=== PATIENT | female | born 1975 | race African-American/Black ===

== ENCOUNTER 2016-05-01 15:18 | Emergency (ER) | payer OTHER | END 2016-05-01 16:17 | disposition left against medical advice (07) | LOC: EMS 15:19 | DX: R11.10 Vomiting, unspecified (principal); Z53.21 Procedure and treatment not carried out due to patient leaving prior to being seen by health care provider ==

== ENCOUNTER 2016-09-20 12:55 | Emergency (ER) | payer MEDICAID, OTHER ==
[~2016-09-20] VITALS: Ht 157.5 cm; Wt 115.5 kg
[2016-09-20 16:41] VITALS: BP 139/77
== END 2016-09-20 16:54 | disposition home or self-care (01) ==
LOC: EMS 12:56
DX: O26.892 Other specified pregnancy related conditions, second trimester (principal); L03.115 Cellulitis of right lower limb; J45.909 Unspecified asthma, uncomplicated; Z3A.24 24 weeks gestation of pregnancy
CPT/HCPCS: 99283

== ENCOUNTER 2022-12-31 17:34 | Emergency (ER) | payer MEDICAID ==
[~2022-12-31] VITALS: Ht 157.5 cm; Wt 103.0 kg
[2022-12-31] MEDS ORDERED: SEMA0.258 SQ (17:43)
[2022-12-31] MEDS ORDERED: SERT-162 PO (17:43)
[2022-12-31] MEDS ORDERED: CABO6SUS IM (17:43)
[2022-12-31] MEDS ORDERED: ALBU18HF12 IH (17:43)
[2022-12-31 18:13] LABS: BASOPHILS % (AUTO) 0.7 % (0.0-2.0); EOSINOPHILS % (AUTO) 1.5 % (1.0-6.0); HEMATOCRIT 34.2 % (36-46); HEMOGLOBIN 11.5 g/dL (12.0-16.0); LYMPHOCYTES # (AUTO) 1.4 K/uL (1.0-4.8); MEAN CORPUSCULAR HEMOGLOBIN 30.7 pg (26.0-34.0); MEAN CORPUSCULAR HGB CONC 33.5 G/dL (31.0-37.0); MEAN CORPUSCULAR VOLUME 92 fL (80-100); MONOCYTES # (AUTO) 0.6 K/uL (0.1-1.0); MONOCYTES % (AUTO) 7.8 % (2.0-9.0); PLATELET COUNT (AUTO) 275 K/uL (150-450); RED BLOOD CELL COUNT(AUTO) 3.73 MIL/uL (4.00-5.20); RED CELL DISTRIBUTION WIDTH 14.5 % (11.5-14.5); WHITE BLOOD COUNT (AUTO) 7.1 K/uL (4.5-11.0)
[2022-12-31 18:26] LABS: D-DIMER 1.81 mg/L FEU (0.00-0.50); PROTHROMBIN TIME 10.3 SEC (9.4-11.6)
[2022-12-31 18:38] LABS: ANION GAP 8 mmol/L (8-16); B-TYPE NATRIURETIC PEPTIDE 15 pg/mL (0-100); CALCIUM, TOTAL 8.6 mg/dL (8.8-10.5); CARBON DIOXIDE 25 mmol/L (22-29); CHLORIDE 101 mmol/L (98-107); CREATININE 2.33 mg/dL (0.60-1.30); GLOMERULAR FILTR. RATE CALC 27 mL/min (>60); GLUCOSE,RANDOM 102 mg/dL (70-110); POTASSIUM 4.6 mmol/L (3.5-5.1); SODIUM SERUM 134 mmol/L (136-145); UREA NITROGEN, BLOOD 35 mg/dL (7-18)
[2022-12-31 18:44] LABS: ALANINE AMINOTRANSFERASE 40 U/L (12-78); ALBUMIN 2.8 g/dL (3.4-5.0); ALKALINE PHOSPHATASE 116 U/L (46-116); ASPARTATE AMINOTRANSFERASE 37 U/L (15-37); BILIRUBIN,TOTAL 0.5 mg/dL (0.1-1.0); CREATINE KINASE, TOTAL ONLY 63 U/L (26-192); TOTAL PROTEIN, SERUM 8.5 g/dL (6.4-8.2)
[2022-12-31 19:00] LABS: TROPONIN I-HIGH SENSITIVITY 4 ng/L (<51)
[2022-12-31 19:21] LABS: HCG,QUANTITATIVE < 1 mIU/mL (0-6)
[2022-12-31 20:35] LABS: TROPONIN I-HIGH SENSITIVITY 6 ng/L (<51)
[2022-12-31] MEDS ORDERED: ACETAMINOPHEN 500 MG TABLET PO ONE (21:00)
[2022-12-31] MEDS ORDERED: FAMOTIDINE 20 MG TABLET PO ONE (21:00)
[2022-12-31] MEDS ORDERED: MAG HYDROX/AL HYDROX/SIMETH 30 ML SUSP UDCUP PO ONE (21:00)
[2022-12-31] MEDS ORDERED: PENTETATE DTPA TC99M/MCL ISOTOPE 1 EA INJ INJ ONE (21:20)
[2022-12-31] MEDS ORDERED: MAA ALBUMIN AGGREGATED TC99M/UD<10MCL ISOTOPE 1 EA INJ INJ ONE (21:35)
[2023-01-01 00:12] VITALS: BP 134/74; PULSE 71; RESP 16; TEMP 98.3
== END 2023-01-01 00:22 | disposition home or self-care (01) ==
LOC: EMS 17:34
DX: R07.89 Other chest pain (principal); J45.909 Unspecified asthma, uncomplicated; Z98.890 Other specified postprocedural states; Z88.0 Allergy status to penicillin
CPT/HCPCS: 99285; 78582; 71045; 80053; 82550; 83880; 84484; 84702; 85025; 85379; 85610; 85730; 36415; 93005; A9540; A9539

== ENCOUNTER 2023-01-31 17:56 | Emergency (ER) | payer MEDICAID, OTHER ==
[~2023-01-31] VITALS: Ht 160 cm; Wt 100.5 kg
[~2023-01-31 17:56] MED LIST: ALBU18HF12 IH; CABO6SUS IM; SEMA0.258 SQ; SERT-162 PO
[2023-01-31 18:01] VITALS: TEMP 98.9
[2023-01-31 21:00] VITALS: BP 124/69; PULSE 78; RESP 16
== END 2023-01-31 21:56 | disposition home or self-care (01) ==
LOC: EMS 17:57
DX: S83.91XA Sprain of unspecified site of right knee, initial encounter (principal); J45.909 Unspecified asthma, uncomplicated; Z88.0 Allergy status to penicillin; Z98.890 Other specified postprocedural states; X58.XXXA Exposure to other specified factors, initial encounter; Y93.89 Activity, other specified; Y92.89 Other specified places as the place of occurrence of the external cause; Y99.8 Other external cause status
CPT/HCPCS: 29505; 29530; 99283